=== PATIENT | female | born 1965 | race Caucasian/White ===

== ENCOUNTER 2020-06-06 05:31 | Outpatient (RCR) | payer OTHER ==
[~2020-06-06] VITALS: Ht 162 cm; Wt 82.7 kg
[~2020-06-06 05:31] MED LIST: ASPI-586 PO; HYDR12.56 PO
[2020-06-06] MEDS ORDERED: ESCI20TA PO (10:56)
[2020-06-06] MEDS ORDERED: ASPI-586 PO (10:56)
[2020-06-06] MEDS ORDERED: ROSU10TA28 PO (10:56)
[2020-06-06] MEDS ORDERED: MULT-1136 PO (10:56)
== END 2020-06-06 11:09 | disposition home or self-care (01) ==
LOC: PREOP 05:31
PROVIDERS: ATTEND Internal Medicine
DX: Z01.818 Encounter for other preprocedural examination (principal); Z20.828 Contact with and (suspected) exposure to other viral communicable diseases; Z80.0 Family history of malignant neoplasm of digestive organs; Z86.010 Personal history of colon polyps
CPT/HCPCS: 87635

== ENCOUNTER 2020-06-09 09:11 | Day surgery (SDC) | payer OTHER ==
--- NOTE | 2020-05-29 07:12 | HISTORY AND PHYSICAL ---
DATE OF SERVICE: COLONOSCOPY HISTORY AND PHYSICAL HISTORY OF PRESENT ILLNESS: The patient is a 54-year-old white female, who was in the office for followup of hypertension. She had a past history of colon polyps and a family history for colon cancer, index case being her sister diagnosed in her 40s. She reports that she has been feeling well. She has had no bowel habit change. Denies abdominal pain, melena or bright red blood per rectum. Energy level has been at baseline and she voiced no complaints. PHYSICAL EXAMINATION: GENERAL: Revealed a white female, who appeared to be in no acute distress. VITAL SIGNS: Weight was up 4.2 pounds to 186.4 and blood pressure 116/80. HEENT: Unremarkable. Sclerae nonicteric. Ear canals clear with normal TMs. Mallampati 2 oropharyngeal configuration. CHEST: Clear. CARDIOVASCULAR: Regular rate and rhythm without murmur, S3 or S4. ABDOMEN: Soft, supple without mass, organomegaly or tenderness. EXTREMITIES: Reveal no cyanosis, clubbing or edema. LABORATORY DATA: Blood tests were reviewed with the patient revealing an unremarkable chemistry panel and favorable lipid parameters on statin therapy for hyperlipidemia. Her total cholesterol was down from 249 to 160. Triglyceride level was down from 274 to 200 and I reviewed past colonoscopy. She had a hyperplastic polyp removed from the rectosigmoid junction with evidence for mild diverticular disease confined to the sigmoid colon. IMPRESSION AND PLAN: 1. Hypertension, under good control. 2. Family history of early colon cancer in a first-degree relative. The patient was set up for a surveillance colonoscopy on 06/09. Prep instructions and Suprep kit were given and questions were answered. 3. Hyperlipidemia, under improved control on statin therapy. Discussed the importance of portion control, regular activity to achieve weight loss, reasonable goal being 1 to 2 pounds per month. I will see her back in 6 months. Job ID: [id number] DocumentID: [id number] Dictated Date: 05/12/2020 14:51:48 Data Integrity Analyst Date: 05/12/2020 15:13:30 Dictated By: LEA GUILLEN MD
[~2020-06-09] VITALS: Ht 162 cm; Wt 82.7 kg
[2020-06-09] VITALS (10 sets, daily range): BP systolic 101–129; BP diastolic 60–83
[~2020-06-09 09:11] MED LIST changes: +ESCI20TA PO; +MULT-1136 PO; +ROSU10TA28 PO
[2020-06-09] MEDS ORDERED: D5 LR IV SOLUTION 1,000 ML IV STA (09:23)
[2020-06-09] MEDS ORDERED: D5 LR IV SOLUTION 1,000 ML IV ONE (09:24)
[2020-06-09] MEDS ORDERED: fentaNYL INJECTION 100 MCG/2 ML AMP IVP ONE (09:30)
[2020-06-09] MEDS ORDERED: LIDOCAINE JELLY 2% 6 ML SYRINGE MM PRN (09:30)
[2020-06-09] MEDS ORDERED: MIDAZOLAM 5 MG/5 ML (VERSED) VIAL ONE (09:48)
[2020-06-09] MEDS ORDERED: fentaNYL INJECTION 100 MCG/2 ML AMP ONE (09:48)
[2020-06-09] MEDS ORDERED: LIDOCAINE JELLY 2% 6 ML SYRINGE ONE (09:48)
--- NOTE | 2020-06-09 09:49 | Pre-Op Note & Conscious Sedat ---
Pre-Operative Progress Note H&P Reviewed The H&P was reviewed, patient examined and no changes noted. Date H&P Reviewed: Jun 09, 2020 Time H&P Reviewed: 09:40 Conscious Sedation Pre-Proced ASA Score 2 For ASA 3 and 4: Consider anesthesia and medical clearance. Also, for patients with a history of failed moderate sedation consider anesthesia. Airway Lungs Heart ASA score ASA 1: a normal healthy patient ASA 2: a patient with a mild systemic disease (mid diabetes, controlled hypertension, obesity ASA 3: a patient with a severe systemic disease that limits activity (angina, COPD, prior Myocardial infarction) ASA 4: a patient with an incapacitating disease that is a constant threat to life (CHF, renal failure) ASA 5: a moribund patient not expected to survive 24 hrs. (ruptured aneurysm) ASA 6: a declared brain- patient whose organs are being harvested. For emergent operations, add the letter E after the classification Mallampati Classification Grade 2 Sedation Plan Analgesia, Amnesia, Plan communicated to team members, Discussed options with patient/fam, Discussed risks with patient/fam The patient is an appropriate candidate to undergo the planned procedure, sedation, and anesthesia. The patient immediately re-assessed prior to indication. LEA GUILLEN MD Jun 09, 2020 09:49
[2020-06-09] MEDS: MIDAZOLAM 5 MG/5 ML (VERSED) VIAL IV PRN ×3 (10:00→10:07)
--- OUTSIDE RECORDS SUMMARY | 2020-06-09 11:09 | XMS REPORT | Continuity of Care Document ---
Author Organization Unknown Address Unknown Phone Unavailable Allergies Active Description Code Type Severity Reaction Onset Reported/Identified Relationship to Patient Clinical Status Yes amoxicillin [id number] Drug Aller gy Unknown HIVES 02/15/2016 Yes codeine [id number] Drug Allergy Unknown NAUSEA 02/15/2016 Yes amoxicillin [id number] Drug Aller gy Mild HIVES 06/06/2020 Yes codeine [id number] Drug Allergy Mild NAUSEA 06/06/2020 Medications There is no data. Problems Date Dx Coded Attending Type Code Diagnosis Diagnosed By 02/15/2016 LEA GUILLEN MD Ot Z01.818 02/15/2016 LEA GUILLEN MD Ot Z12. 11 02/16/2016 Ot K63.5 POLY P OF COLON 02/16/2016 Ot Z12.11 ENC OUNTER FOR SCREENING FOR MALIGNANT NE 02/16/2016 Ot Z80.0 FAMI LY HISTORY OF MALIGNANT NEOPLASM OF Procedures There is no data. Results There is no data. Encounters ACCT No. Visit Date/Time Discharge Status Pt. Type Provider Facility Loc./Unit Complaint [id number] 11/12/2019 09:00:00 11/12/2019 23:59 :00 DIS Outpatient AMITA GREGORIO [id number] 06/03/2017 13:32:00 06/03/2017 23:59: 00 DIS Outpatient AMITA GREGORIO [id number] 06/06/2020 05:31:00 020 11:09:00 DIS Outpatient LEA GUILLEN MD [facility] PREOP FAMILY HISTORY COLON CA NCER [id number] 11/08/2019 14:57:00 019 23:59:59 CLS Preadmit AMITA GREGORIO DO [facility] RAD SCREENING [id number] 02/14/2016 05:31:00 016 23:59:59 CLS Outpatient LEA GUILLEN MD [facility] PREOP [id number] 06/09/2020 07:30:00 P ALTAGRACIA GUILLEN MD, LE[facility] Phelan [facility] FAM[facility] H[facility] OF COLON CANC ER. [id number] 02/16/2016 08:42:00 Document Registration
--- NOTE | 2020-06-09 19:50 | OPERATIVE REPORT ---
DATE OF SERVICE: COLONOSCOPY SUMMARY PRIMARY CARE PROVIDER: Lea Guillen MD INDICATION FOR THE PROCEDURE: Surveillance colonoscopy, family history of colon cancer, index case being her sister diagnosed in her mid 40s. DESCRIPTION OF PROCEDURE: The patient was placed in the left lateral decubitus position. Prior to undergoing colonoscopy, digital rectal evaluation was performed. Anal sphincter tone was normal and the perianal reflexes intact. No abnormalities were noted on digital inspection of anal canal or distal rectal vault. The colonoscope was then inserted into the rectum and under direct visualization advanced to cecum. The cecum was identified by identification of ileocecal valve and cecal strap. Photographic documentation was obtained. Careful inspection was made as the colonoscope was withdrawn. Quality of prep was good. FINDINGS: There was no evidence for internal or external hemorrhoids. The rectum was unremarkable. Two small sigmoid diverticulum were noted without evidence for diverticulitis. No other sigmoid colonic abnormalities were appreciated. Present in the mid descending colon was a diminutive 3 mm sessile polyp that was photographed and biopsied and ablated with no significant blood loss. The splenic flexure, transverse colon, hepatic flexure, ascending colon and cecum were unremarkable. ASSESSMENT: 1. Minimal diverticular disease confined to the sigmoid colon was present. 2. One diminutive polyp was removed via hot forceps from the descending colon. No other abnormalities noted on today's procedure. As long as there is no surprise on histopathology report, we will be advocating repeat surveillance colonoscopy in 5 years. Job ID: [id number] DocumentID: [id number] Dictated Date: 06/09/2020 11:35:17 Tar Boiler Date: 06/09/2020 19:50:05 Dictated By: LEA GUILLEN MD
== END 2020-06-09 11:20 | disposition home or self-care (01) ==
LOC: ENDO 09:11
PROVIDERS: ATTEND Internal Medicine
DX: Z12.11 Encounter for screening for malignant neoplasm of colon (principal); D12.4 Benign neoplasm of descending colon; K57.30 Diverticulosis of large intestine without perforation or abscess without bleeding; Z80.0 Family history of malignant neoplasm of digestive organs; I10 Essential (primary) hypertension; E78.5 Hyperlipidemia, unspecified; Z86.010 Personal history of colon polyps